=== PATIENT | female | born 1955 | race Two or more races ===

== ENCOUNTER 2022-03-01 15:19 | Outpatient (CLI) | payer OTHER | END 2022-03-01 15:29 | disposition home or self-care (01) | LOC: RAD 15:19 | PROVIDERS: ATTEND General Practice | DX: M54.6 Pain in thoracic spine (principal); Z91.81 History of falling ==

== ENCOUNTER → 2023-02-03 | Outpatient (CLI) | payer OTHER | END | disposition home or self-care (01) | LOC: RAD 11:18 | PROVIDERS: ATTEND Internal Medicine Cardiovascular Disease | DX: J44.9 Chronic obstructive pulmonary disease, unspecified (principal); J32.9 Chronic sinusitis, unspecified ==